=== PATIENT | male | born 1955 | race African-American/Black ===

== ENCOUNTER 2016-09-05 11:53 | Emergency (ER) | payer MEDICAID, OTHER ==
[~2016-09-05] VITALS: Ht 175.3 cm; Wt 63.6 kg
[~2016-09-05 11:53] MED LIST: CITA20TA17 PO; CLON.1 PO; GABA600T PO; OLAN5Z PO
[2016-09-05 12:07] LABS: GLUCOSE,POINT OF CARE 129 MG/DL (70-110)
[2016-09-05] MEDS ORDERED: TRAZ-147 PO (12:11)
[2016-09-05] MEDS ORDERED: MAGNESIUM SULFATE 2 GM, MVI, ADULT NO.1 WITH VIT K 10 ML, THIAMINE HCL 100 MG, FOLIC AC... IV ONE ×5 (13:15)
[2016-09-05 15:20] VITALS: BP 116/81
== END 2016-09-05 15:55 | disposition home or self-care (01) ==
LOC: EMS 11:55
DX: F41.9 Anxiety disorder, unspecified (principal); F10.129 Alcohol abuse with intoxication, unspecified; F32.9 Major depressive disorder, single episode, unspecified; F17.210 Nicotine dependence, cigarettes, uncomplicated; F12.90 Cannabis use, unspecified, uncomplicated; Z91.040 Latex allergy status; Y90.7 Blood alcohol level of 200-239 mg/100 ml
CPT/HCPCS: 36415; 80307; 82962; 96365; 96366; 99285; 99406; G0480; J3411; J3475; J3490 ×2; J7030

== ENCOUNTER 2017-06-27 08:05 | Emergency (ER) | payer OTHER ==
[~2017-06-27] VITALS: Ht 175.3 cm; Wt 56.0 kg
[~2017-06-27 08:05] MED LIST changes: +CLON-570 PO; -CLON.1 PO; +OLAN5TAB40 PO; -OLAN5Z PO; +TRAZ-147 PO
[2017-06-27] MEDS ORDERED: DIAZ10 PO (08:08)
[2017-06-27] MEDS ORDERED: DIAZEPAM 2 MG TABLET PO ONE (10:00)
[2017-06-27] MEDS ORDERED: BUPIVACAINE HCL 0.5% 50 ML VIAL INJ ONE (10:00)
[2017-06-27] MEDS ORDERED: LIDOCAINE HCL 0.5% 50 ML VIAL INJ ONE (10:00)
[2017-06-27 11:45] VITALS: BP 137/77
== END 2017-06-27 11:45 | disposition home or self-care (01) ==
LOC: EMS 08:05
DX: S62.306A Unspecified fracture of fifth metacarpal bone, right hand, initial encounter for closed fracture (principal); S05.11XA Contusion of eyeball and orbital tissues, right eye, initial encounter; S00.81XA Abrasion of other part of head, initial encounter; R45.851 Suicidal ideations; I10 Essential (primary) hypertension; F12.90 Cannabis use, unspecified, uncomplicated; F17.210 Nicotine dependence, cigarettes, uncomplicated; Z91.040 Latex allergy status; Y04.0XXA Assault by unarmed brawl or fight, initial encounter; Y93.89 Activity, other specified; Y92.89 Other specified places as the place of occurrence of the external cause; Y99.8 Other external cause status
CPT/HCPCS: 26605; 73130; 99284; 99406; J3490 ×2

== ENCOUNTER 2017-07-05 13:09 | Emergency (ER) | payer OTHER ==
[~2017-07-05] VITALS: Ht 175.3 cm; Wt 55.9 kg
[~2017-07-05 13:09] MED LIST changes: -CLON-570 PO; +DIAZ10 PO
[2017-07-05] MEDS ORDERED: ACETAMINOPHEN 325 MG TABLET PO ONE (15:00)
[2017-07-05 15:32] VITALS: BP 112/77
== END 2017-07-05 15:41 | disposition home or self-care (01) ==
LOC: EMS 13:15
DX: S92.354A Nondisplaced fracture of fifth metatarsal bone, right foot, initial encounter for closed fracture (principal); I10 Essential (primary) hypertension; F32.9 Major depressive disorder, single episode, unspecified; F17.210 Nicotine dependence, cigarettes, uncomplicated; Z98.890 Other specified postprocedural states; Z91.040 Latex allergy status; Z79.899 Other long term (current) drug therapy; X58.XXXA Exposure to other specified factors, initial encounter; Y93.89 Activity, other specified; Y92.89 Other specified places as the place of occurrence of the external cause; Y99.8 Other external cause status
CPT/HCPCS: 99283

== ENCOUNTER 2017-07-06 10:54 | Emergency (ER) | payer OTHER ==
[~2017-07-06] VITALS: Ht 175.3 cm; Wt 56.8 kg
[2017-07-06 10:59] VITALS: BP 122/89
== END 2017-07-06 12:49 | disposition left against medical advice (07) ==
LOC: EMS 10:55
DX: M79.641 Pain in right hand (principal); I10 Essential (primary) hypertension; F17.210 Nicotine dependence, cigarettes, uncomplicated; F12.90 Cannabis use, unspecified, uncomplicated; Z53.21 Procedure and treatment not carried out due to patient leaving prior to being seen by health care provider

== ENCOUNTER 2017-07-22 17:10 | Emergency (ER) | payer OTHER ==
[~2017-07-22] VITALS: Ht 175.3 cm; Wt 59.0 kg
[2017-07-22 19:30] VITALS: BP 112/81
== END 2017-07-22 20:01 | disposition home or self-care (01) ==
LOC: EMS 17:11
DX: S62.306D Unspecified fracture of fifth metacarpal bone, right hand, subsequent encounter for fracture with routine healing (principal); I10 Essential (primary) hypertension; F17.210 Nicotine dependence, cigarettes, uncomplicated; F12.90 Cannabis use, unspecified, uncomplicated; Z91.040 Latex allergy status; X58.XXXD Exposure to other specified factors, subsequent encounter
CPT/HCPCS: 99284

== ENCOUNTER 2017-07-30 16:14 | Emergency (ER) | payer OTHER ==
[~2017-07-30] VITALS: Ht 175.3 cm; Wt 56.8 kg
[~2017-07-30 16:14] MED LIST changes: -OLAN5TAB40 PO
[2017-07-30 16:46] VITALS: BP 153/103
== END 2017-07-30 17:18 | disposition home or self-care (01) ==
LOC: EMS 16:58
DX: S62.306D Unspecified fracture of fifth metacarpal bone, right hand, subsequent encounter for fracture with routine healing (principal); I10 Essential (primary) hypertension; F12.90 Cannabis use, unspecified, uncomplicated; F17.210 Nicotine dependence, cigarettes, uncomplicated; Z91.040 Latex allergy status; X58.XXXD Exposure to other specified factors, subsequent encounter
CPT/HCPCS: 99283

== ENCOUNTER 2017-09-24 14:12 | Emergency (ER) | payer OTHER ==
[~2017-09-24] VITALS: Ht 175.3 cm; Wt 59.1 kg
[~2017-09-24 14:12] MED LIST changes: -TRAZ-147 PO; +TRAZ-220 PO
[2017-09-24] MEDS ORDERED: IBUPROFEN 800 MG TABLET PO ONE (16:15)
[2017-09-24 18:00] VITALS: BP 119/63
== END 2017-09-24 18:10 | disposition home or self-care (01) ==
LOC: EMS 14:13
DX: S62.311A Displaced fracture of base of second metacarpal bone, left hand, initial encounter for closed fracture (principal); S62.232A Other displaced fracture of base of first metacarpal bone, left hand, initial encounter for closed fracture; S06.0X9A Concussion with loss of consciousness of unspecified duration, initial encounter; I10 Essential (primary) hypertension; F17.210 Nicotine dependence, cigarettes, uncomplicated; F12.90 Cannabis use, unspecified, uncomplicated; Z91.040 Latex allergy status; W19.XXXA Unspecified fall, initial encounter; Y93.89 Activity, other specified; Y92.89 Other specified places as the place of occurrence of the external cause; Y99.8 Other external cause status
CPT/HCPCS: 70450; 99284

== ENCOUNTER 2024-04-09 18:55 | Emergency (ER) | payer MEDICARE, MEDICAID ==
[~2024-04-09 18:55] MED LIST changes: -DIAZ10 PO; -GABA600T PO; -TRAZ-220 PO; +TRAZ-257 PO
== END 2024-04-09 21:00 | disposition left against medical advice (07) ==
LOC: EMS 18:55
DX: Z53.21 Procedure and treatment not carried out due to patient leaving prior to being seen by health care provider (principal)